=== PATIENT | female | born 1965 | race Asian ===

== ENCOUNTER 2016-11-07 09:16 | Inpatient (IN) | payer OTHER ==
[~2016-11-07] VITALS: Ht 162.6 cm; Wt 66.5 kg
[2016-11-07] VITALS (16 sets, daily range): BP systolic 113–159; BP diastolic 67–92; PULSE 102–128; RESP 16–24; Ht 162.6 cm; Wt 66.5 kg
[~2016-11-07 09:16] MED LIST: ASPI-664; CARV6.2579 PO; CEFAZOLIN 1 GM INJ ONE; CEFAZOLIN 2 GM/50 ML (PMX) 50 ML IVPB ONE; D5-NS + KCL 20 MEQ 1,000 ML IV SCH; GEMF600T; SITA1TAB7 PO; metroNIDAZOLE 500 MG/NS (PMX) 100 ML IVPB ONE
[2016-11-07] MEDS ORDERED: THROMBIN 5000 UNIT VIAL ONE ×2 (10:11→11:56)
[2016-11-07] MEDS ORDERED: VASOPRESSIN 20 UNITS INJ ONE (10:11)
[2016-11-07] MEDS ORDERED: METHYLENE BLUE 10 MG/ML VIAL ONE ×2 (10:11→14:03)
[2016-11-07] MEDS ORDERED: SUCCINYLCHOLINE CHLORIDE 100 MG/5 ML SYG IV ONE (11:25)
[2016-11-07] MEDS ORDERED: LIDOCAINE 2% (SDV) 5 ML INJ ONE (11:25)
[2016-11-07] MEDS ORDERED: NEOSTIGMINE 3 MG/3 ML SYRINGE ONE (11:25)
[2016-11-07] MEDS ORDERED: ROCURONIUM 50 MG INJ ONE ×2 (11:25→12:27)
[2016-11-07] MEDS ORDERED: GLYCOPYRROLATE 0.4 MG INJ ONE (11:25)
[2016-11-07] MEDS ORDERED: PROPOFOL 20 ML ONE (11:25)
[2016-11-07] MEDS ORDERED: ONDANSETRON 4 MG INJ ONE (11:28)
[2016-11-07] MEDS ORDERED: METOCLOPRAMIDE 10 MG INJ ONE (11:28)
[2016-11-07] MEDS ORDERED: morphine SULFATE/PF (10 MG/10 ML) INJ ONE ×2 (11:28→11:33)
[2016-11-07] MEDS ORDERED: HEMOSTATIC MATRIX SYG ZFS ONE (12:45)
[2016-11-07] MEDS ORDERED: FENTAnyl 50 MCG/ML VIAL IV PRN ×2 (14:30)
[2016-11-07] MEDS ORDERED: morphine (1 MG/ML) 10ML SYRINGE IV PRN ×2 (14:30)
[2016-11-07] MEDS ORDERED: METOCLOPRAMIDE 10 MG INJ IV PRN (14:30)
[2016-11-07] MEDS ORDERED: LABETALOL HCL 20MG INJ IV PRN (14:30)
[2016-11-07] MEDS ORDERED: EPHEDrine SULFATE 50 MG/5 ML SYG IV PRN ×2 (14:30)
[2016-11-07] MEDS ORDERED: hydrALAzine 20 MG INJ IV PRN (14:30)
[2016-11-07] MEDS ORDERED: MEPERIDINE 25 MG INJ IV PRN (14:30)
[2016-11-07] MEDS ORDERED: MIDAZOLAM 1 MG/ML 2 ML INJ IV PRN (14:30)
[2016-11-07] MEDS ORDERED: DIPHENHYDRAMINE 50 MG INJ IV PRN (14:30)
[2016-11-07] MEDS ORDERED: ONDANSETRON 4 MG INJ IV PRN (14:30)
[2016-11-07] MEDS ORDERED: morphine SULFATE/PF (10 MG/10 ML) INJ SPINAL ONE (14:30)
[2016-11-07] MEDS ORDERED: HYDROCODONE/APAP (5/325) TAB PO PRN (16:00)
[2016-11-07] MEDS ORDERED: morphine 2 MG INJ IV PRN (16:00)
[2016-11-07 16:21] LABS: ADD UMIC YES; URINE BILIRUBIN (Dip) NEGATIVE (NEGATIVE); URINE BLOOD (Dip) 3+ (NEGATIVE); URINE COLOR LT. YELLOW (YELLOW); URINE KETONES (Dip) NEGATIVE (NEGATIVE); URINE LEUKOCYTE ESTERASE (Dip) NEGATIVE (NEGATIVE); URINE NITRITE (Dip) NEGATIVE (NEGATIVE); URINE TOTAL PROTEIN (Dip) TRACE (NEGATIVE); URINE UROBILINOGEN (Dip) 0.2 E.U./dL (0.1-1.0)
[2016-11-07 16:42] LABS: URINE RBCS >50 /HPF (0)
[2016-11-07 16:43] LABS: BACTERIA,URINE RARE; SQUAMOUS EPITHELIAL CELL,UR RARE
[2016-11-07] MEDS ORDERED: D5-LR + KCL 20 MEQ 1,000 ML IV SCH (17:00)
[2016-11-07] MEDS: KETOROLAC 30 MG INJ IV SCH (19:02)
[2016-11-07] MEDS ORDERED: GLUCOSE GEL 15 GRAM TUBE BUCCAL PRN (20:30)
[2016-11-07] MEDS ORDERED: GLUCAGON 1 MG INJ IM PRN (20:30)
[2016-11-07] MEDS ORDERED: DEXTROSE 50% 50 ML SYRINGE IV PRN ×2 (20:30)
[2016-11-07] MEDS ORDERED: GLUCOSE GEL 15 GRAM TUBE PO PRN ×2 (20:30)
[2016-11-07] MEDS: GABAPENTIN 100 MG CAP PO SCH (21:09)
[2016-11-07] MEDS: INSULIN ASPART [NOVOLOG] 3 ML PEN SC SCH (21:14)
[2016-11-07] MEDS ORDERED: POTASSIUM CHLORIDE 20 MEQ in DEXTROSE 5%-LR 1,000 ML IV SCH (21:30)
[2016-11-07] MEDS: ONDANSETRON 4 MG INJ IV PRN (22:11)
[2016-11-08] VITALS: BP 105/57; PULSE 122; RESP 18
[2016-11-08] MEDS: KETOROLAC 30 MG INJ IV SCH ×5 (01:04→23:06)
[2016-11-08] MEDS: ACCUCHECK XX SCH (02:00)
[2016-11-08 05:29] LABS: BASOPHILS % 0.3 % (0.0-2.0); HEMATOCRIT 33.1 % (37.0-47.0); HEMOGLOBIN 11.2 g/dl (12.0-16.0); LYMPHOCYTES # 1.7 10^3/ul (0.8-2.9); LYMPHOCYTES % 19.3 % (15.0-51.0); MEAN CORPUSCULAR HEMOGLOBIN 28.7 pg (29.0-33.0); MEAN CORPUSCULAR HGB CONC 33.8 g/dl (32.0-37.0); MEAN CORPUSCULAR VOLUME 85.1 fl (82.0-101.0); MEAN PLATELET VOLUME 8.1 fl (7.4-10.4); MONOCYTE # 0.5 10^3/ul (0.3-0.9); NEUTROPHIL # 6.5 10^3/ul (1.6-7.5); NEUTROPHILS % 74.4 % (39.0-77.0); PLATELET COUNT 234 10^3/UL (140-440); RED BLOOD COUNT 3.89 10^6/ul (4.20-5.40); RED CELL DISTRIBUTION WIDTH 15.1 % (11.5-14.5); UNCORRECTED WBC 8.7 10^3/ul (4.8-10.8); WHITE BLOOD COUNT 8.7 10^3/ul (4.8-10.8)
[2016-11-08 05:37] VITALS: BP 104/58; PULSE 114; RESP 18
[2016-11-08 05:56] LABS: CONDITION 1; LH ANALYZER COMMENTS 1
[2016-11-08] MEDS ORDERED: POTASSIUM CHLORIDE 20 MEQ in DEXTROSE 5%-LR 1,000 ML IV SCH (06:00)
[2016-11-08] MEDS ORDERED: D5-LR + KCL 20 MEQ 1,000 ML IV SCH (06:00)
[2016-11-08 06:19] LABS: CALCIUM 8.3 mg/dl (8.4-10.2)
[2016-11-08 06:33] LABS: POTASSIUM 3.6 mmol/L (3.5-5.1)
[2016-11-08 06:36] LABS: CREATININE 0.61 mg/dl (0.44-1.00)
[2016-11-08] MEDS: ONDANSETRON 4 MG INJ IV PRN (08:20)
[2016-11-08] MEDS: GABAPENTIN 100 MG CAP PO SCH ×3 (08:21→20:39)
[2016-11-08] MEDS: ASPIRIN (EC) 81 MG TAB PO SCH (08:21)
[2016-11-08] MEDS: INSULIN ASPART [NOVOLOG] 3 ML PEN SC SCH ×4 (08:24→20:42)
[2016-11-08 08:38] VITALS: BP 91/50; PULSE 115; RESP 18
[2016-11-08] MEDS ORDERED: LISINOPRIL 10 MG TAB PO SCH (09:00)
[2016-11-08] MEDS ORDERED: [UNRECOGNIZED DRUG - OTHER] XX SCH (10:00)
[2016-11-08] MEDS ORDERED: [UNRECOGNIZED DRUG - REMARK] XX SCH (10:00)
[2016-11-08] MEDS ORDERED: DAPAGLIFLOZIN 10 MG XX SCH (10:00)
[2016-11-08] MEDS ORDERED: JANUMET XX SCH (10:00)
[2016-11-08 12:18] VITALS: BP 106/55; PULSE 107; RESP 17
[2016-11-08] MEDS: FARXIGA 10 MG PO SCH (13:19)
[2016-11-08] MEDS: Pravastatin 40 MG TAB PO SCH (13:19)
[2016-11-08] MEDS: OMEPRAZOLE 40MG PO SCH (15:07)
--- NOTE | 2016-11-08 16:19 | PN ---
Date/Time of Note Date/Time of Note DATE: 11/08/16 TIME: 16:16 Assessment/Plan VTE Prophylaxis VTE Prophylaxis Intervention: SCD's Lines/Catheters IV Catheter Type (from [facility]): Peripheral IV Urinary Cath still in place: Yes Assessment/Plan Chief Complaint/Hosp Course persistent PMB, pelvic cyst Problems: Assessment/Plan A- doing adequate but gradual P - anticipate discharge tomorrow. Encouraged to ambulate and discussed surgery. Subjective 24 Hr Interval Summary Free Text/Dictation S-Minimal flatus and minimally OOB. Tolerated diet marginally. O- resp- clear cvs- NSR abd soft NT ext NT no edema A- doing adequate but gradual P - anticipate discharge tomorrow. Encouraged to ambulate and discussed surgery. Exam/Review of Systems Vital Signs Vitals Vital Signs Date Time Temp Pulse Resp B/P Pulse Ox O2 Delivery O2 Flow Rate FiO2 11/08/16 12:18 98.0 107 17 106/55 96 Room Air 11/08/16 08:38 2.0 Intake and Output 11/07/16 11/07/16 11/08/16 15:00 23:00 07:00 Intake Total 2250 ml 1450 ml Output Total 1450 ml 550 ml Balance 800 ml 900 ml Results Result Diagram: 11/08/16 0440 11/08/16 0440 Results 24 hrs Laboratory Tests Test 11/07/16 20:23 11/08/16 02:09 11/08/16 04:40 11/08/16 07:43 Bedside Glucose 247 H 262 H 153 Anion Gap 16 Basophils # 0.0 Basophils % 0.3 Blood Morphology Comment Blood Urea Nitrogen 11 Calcium Level 8.3 L Carbon Dioxide Level 26 Chloride Level 105 Creatinine 0.61 Eosinophils # 0.0 Eosinophils % 0.0 Glucose Level 215 Hematocrit 33.1 L Hemoglobin 11.2 L Lymphocytes # 1.7 Lymphocytes % 19.3 Mean Corpuscular Hemoglobin 28.7 L Mean Corpuscular Hemoglobin Concent 33.8 Mean Corpuscular Volume 85.1 Mean Platelet Volume 8.1 Monocytes # 0.5 Monocytes % 6.0 Neutrophils # 6.5 Neutrophils % 74.4 Nucleated Red Blood Cells # 0.0 Nucleated Red Blood Cells % 0.0 Platelet Count 234 Potassium Level 3.6 Red Blood Count 3.89 L Red Cell Distribution Width 15.1 H Sodium Level 143 White Blood Count 8.7 Test 11/08/16 11:29 Bedside Glucose 189 Medications Medications Current Medications Ondansetron HCl (Zofran Inj) 4 mg Q6H PRN IV NAUSEA AND/OR VOMITING Last administered on 11/08/16at 08:20; Admin Dose 4 MG; Start 11/07/16 at 16:00 Ketorolac Tromethamine (Toradol) 30 mg Q6 IV Last administered on 11/08/16at 12 :14; Admin Dose 30 MG; Start 11/07/16 at 18:00; Stop 11/09/16 at 00:01 Acetaminophen/ Hydrocodone Bitart ([place] (5/325)) 1 tab Q6H PRN PO PAIN; Start 11/07/16 at 16:00 Gabapentin (Neurontin) 100 mg TID PO Last administered on 11/08/16at 13:21; Admin Dose 100 MG; Start 11/07/16 at 21:00 Aspirin (Halfprin) 81 mg DAILY PO Last administered on 11/08/16at 08:21; Admin Dose 81 MG; Start 11/08/16 at 09:00 Patient Own Medication 1 ea DAILY PO Last administered on 11/08/16at 13:19; Admin Dose 1 EA; Start 11/08/16 at 13:00 Patient Own Medication 1 ea DAILY PO Last administered on 11/08/16at 15:07; Admin Dose 1 EA; Start 11/08/16 at 14:30 Patient Own Medication 1 ea DAILY PO Last administered on 11/08/16at 13:19; Admin Dose 1 EA; Start 11/08/16 at 13:00 Diagnostic Test (Pha) (Accucheck) 1 ea 02 XX ; Start 11/08/16 at 02:00 Miscellaneous Information 1 ea NOTE XX ; Start 11/07/16 at 20:30 Glucose (Glutose) 15 gm Q15M PRN PO DECREASED GLUCOSE; Start 11/07/16 at 20:30 Glucose (Glutose) 22.5 gm Q15M PRN PO DECREASED GLUCOSE; Start 11/07/16 at 20: 30 Dextrose (D50w Syringe) 25 ml Q15M PRN IV DECREASED GLUCOSE; Start 11/07/16 at 20:30 Dextrose (D50w Syringe) 50 ml Q15M PRN IV DECREASED GLUCOSE; Start 11/07/16 at 20:30 Glucagon (Glucagen) 1 mg Q15M PRN IM DECREASED GLUCOSE; Start 11/07/16 at 20: 30 Glucose 15 gm 15 gm Q15M PRN BUCCAL DECREASED GLUCOSE; Start 11/07/16 at 20:30 Sodium Chloride (NS) 1,000 ml @ 40 mls/hr Q24H IV ; Start 11/08/16 at 16:30; Status UNV Carvedilol (Coreg) 6.25 mg BID PO ; Start 11/08/16 at 21:00; Status UNV Lisinopril (Zestril) 5 mg DAILY PO ; Start 11/09/16 at 09:00; Status UNV TREMAYNE LOCO MD Nov 08, 2016 16:19
[2016-11-08] MEDS ORDERED: SOD CHLORIDE 0.9% 1,000 ML IV SCH (16:30)
--- NOTE | 2016-11-08 17:40 | CONS ---
DATE OF ADMISSION: 11/07/2016 DATE OF CONSULTATION: 11/08/2016 REQUESTING PHYSICIAN: Tremayne Victoria MD CONSULTING PHYSICIAN: Homeor Guzman MD, internal medicine. REASON FOR CONSULTATION: Medical management. HISTORY OF PRESENT ILLNESS: This is a 51-year-old, [place]ese female with past medical history of essential hypertension, type 2 diabetes, gastritis, H. pylori infection, dyslipidemia, and duodenal order ulcers, who was electively brought to [facility] for a laparoscopic total vaginal hysterectomy, secondary to the diagnosis of persistent postmenopausal bleeding and adnexal cyst, cervical stenosis as well as persistent pelvic pain. The patient underwent a total laparoscopic hysterectomy bilateral salpingo- oophorectomy, bilateral ureteral dissection with repositioning, and lysis of adhesions on 11/07/2016mwith no immediate surgical complications. The patient was admitted to inpatient setting for postoperative care. PAST MEDICAL HISTORY: Essential hypertension, type 2 diabetes melitis, duodenal ulcer, gastritis, H pylori infection, dyslipidemia. PAST SURGICAL HISTORY: , total laparoscopic hysterectomy (current). HOME MEDICATIONS 1. Coreg 6.25 mg p.o. b.i.d. 2. Gemfibrozil 600 mg p.o. at bedtime. 3. Aspirin 81 mg p.o. daily. 4. Janumet mg p.o. with breakfast and dinner. 5. Omeprazole 40 mg p.o. daily. 6. Farxiga 10 mg p.o. daily. 7. Atorvastatin 40 mg p.o. at bedtime. ALLERGIES: NO KNOWN DRUG ALLERGIES. SOCIAL HISTORY: The patient was born and brought up in [facility]. Immigrated to the [place] in 2003. The patient currently lives with her family. She has 4 kids. Denies any use of tobacco, alcohol or illicit drugs. FAMILY HISTORY: Positive for diabetes, and CAD. Positive for breast cancer. REVIEW OF SYSTEMS CONSTITUTIONAL: Denies any fevers or chills. HEENT: Denies any headache, dry eyes, blurred vision, otorrhea, otalgia, rhinorrhea. RESPIRATORY: Denies any dyspnea, cough or sputum production. CARDIOVASCULAR: Denies any chest pain. Complains of a rapid heart rate. Denies any orthopnea or paroxysmal nocturnal dyspnea. GASTROINTESTINAL: Denies any nausea. Complains of anorexia, passing gas. GENITOURINARY: Denies any dysuria or hematuria. MUSCULOSKELETAL: Denies any joint pain. NEUROLOGIC: Denies any dizziness, drowsiness. PHYSICAL EXAMINATION VITAL SIGNS: Temperature 98.0, pulse rate 107, respiratory rate 17, blood pressure 106/54, oxygen saturation 96% on room air. GENERAL: This is a slightly a well-built, [place] female lying in bed, in no apparent distress. HEENT: Head normocephalic and atraumatic. Eyes, anicteric sclerae. Conjunctivae clear. ENT, nasal septum is midline. Oral mucosa is moist. NECK: Supple. No JVD noticed. RESPIRATORY: Bilaterally diminished breath sounds. No adventitious breath sounds. No use of accessory muscles of respiration. CARDIAC: Regular rate and rhythm. There is sinus tachycardia. No obvious murmurs heard. ABDOMEN: Slightly distended. Laparoscopic incision sites with dressings over it. Mild nathalia-incisional tenderness. Bowel sounds hypoactive in all 4 quadrants. GENITOURINARY: Deferred. EXTREMITIES: No cyanosis, no clubbing, no edema. Peripheral pulses palpable. NEUROLOGIC: Awake, alert and oriented. Cranial nerves are grossly intact. LABORATORY AND DIAGNOSTIC DATA: WBC 8.7, hemoglobin 11.2, hematocrit 33.1, platelet count 234. Sodium 143, potassium 3.6, chloride 105, carbon dioxide 26 , anion gap 16, BUN 11, creatinine 0.60, glucose 215, calcium 8.3. Urine culture: No growth after 24 hours. ASSESSMENT AND PLAN 1. Persistent postmenopausal bleeding and adnexal cyst, cervical stenosis, bilateral ureteral stricture, and moderate pelvic adhesions. S/P total laparoscopic hysterectomy bilateral salpingo-oophorectomy, bilateral ureteral dissection with repositioning, and lysis of adhesions on 11/07/2016. Continue postoperative care, as per the surgeon. The patient currently on full-liquid diet. Advancement of diet, as per the surgeon. Continue frequent ambulation and frequent use of incentive spirometry. 2. Type 2 diabetes mellitus. Continue sliding scale insulin. The patient on oral biguanides and dipeptidyl peptidase-4 inhibitors, in addition to sodium- glucose co-transporter 2 (SGLT2) inhibitors. Blood sugars running high. The patient's IV fluid containing dextrose will be discontinued. A hemoglobin A1c will be obtained to evaluate the blood glucose control over the past few weeks. 3. Essential hypertension. Continue antihypertensives. The patient's blood pressure is slightly on the lower side. Hold antihypertensives if the BP remains low. 4. Sinus tachycardia. As per the patient, she follows up with Dr. Esdras Singleton, her collector of aquarium specimens. The patient's collector of aquarium specimens has instructed her to continue taking beta blockers. The patient's beta danielle dosing will be decreased because of recurrent hypotension. The patient's heart rate is regular and the patient's 12-lead EKG shows sinus rhythm. 5. Dyslipidemia. The patient will be continued on statins. A fasting lipid panel will be obtained. 6. History of gastritis and duodenal ulcers. The patient will be maintained on proton pump inhibitors. Additional diagnostic and therapeutic orders will be added as clinically indicated. The case and management of this patient were fully discussed with Dr. Guzman. Thank you, Dr. Victoria for allowing us to participate in this patient's care. We will continue to follow the patient along with you. Approximately 45 minutes were spent on the medical consult on this patient. JULIAN GUZMAN MD AM/NTS Conf#: [id number] DID#: [id number] CC: TREMAYNE VICTORIA MD;*EndCC* MTDD
[2016-11-08 21:10] VITALS: BP 111/62; PULSE 109; RESP 18
--- NOTE | 2016-11-08 23:17 | OPR ---
Date/Time of Note Date/Time of Note DATE: 11/08/16 TIME: 23:16 Operative Report Free Text/Dictation 3 OPERATIVE REPORT [facility] Name: Rei Robledo Date: 11/07/16 Preoperative Diagnosis: 1- Persistent postmenopausal bleeding and adnexal cyst 2- Cervical stenosis 3- Pelvic pain Postoperative Diagnosis: 1. Same with pathology pending 2. Bilateral ureteral stricture 3. Moderate pelvic adhesions Procedures: 1. Total laparoscopic hysterectomy bilateral salpingoophorectomy 2. Bilateral ureteral dissection with repositioning 3. Lysis of adhesions Surgeon: Dr. Victoria Release Of Information Specialist: Dr. Behzad Temple Anesthesia: General Indication for procedure: The patient was a 51- year old female with persistent postmenopausal bleeding and cervical stenosis precluding biopsy after considering all options with risks and benefits a total laparoscopic hysterectomy with bilateral salpingoophorectomy was selected and a possible frozen section with possible retroperitoneal node dissection pending frozen section results. Findings and Summary After exploration we observed considerable pelvic adhesions including anterior Name: Rei Gonzalezhuarron Robledo dense adhesions and adnexal bilaterally adherent to the sidewalls with an adjacent cyst both distorting retroperitoneal anatomy and it was necessary to dissect and reposition the ureters bilaterally to confirm anatomic location of the ureters and preclude laparotomy. The adnexia with uterus were then removed without incident. Procedure: After being prepped and draped in the usual manner an EEA sizer and pneumo- occluder was inserted vaginally after which a 5 millimeter trocar was placed immediately cephlad to the umbilicus without incident. Subsequently, considerable anterior abdominal omental adhesions with the Thunderbeat after we insufflated to 15 mm Hg and under direct observation with a 0-degree scope placed two 5 millimeter trocars laterally, allowing a dense cord of anterior adhesion between the uterus and the anterior abdomen to be lysed with the Thunderbeat and then a 12 millimeter trocar was inserted suprapubically. At this time pelvic adhesions were lysed with sharp dissection and the Thunderbeat and Omni if not adjacent to bowel. The pelvis was subsequently inspected and we noted some uterine enlargement with the adnexia densely adherent to the sidewalls and adjacent cyst like structures on the left adjacent to the sigmoid colon that were addressed with sharp dissection due to adhesions. We proceeded with the procedure due to pain and abnormal bleeding. Initially the right round ligament was cauterized and transected with the Thunderbeat and the retroperitoneal space further opened parallel to the IP ligament an laterally with the same devise. The right ureter was identified and due to the aforementioned distortion from adherent adnexia was dissected laterally with the Omni and the endo-dissector. After lateralizing the ureter the uterine artery was identified and clipped adjacent to the hypogastric artery due to the uterine enlargement and hypervascularity lateral to the ureter. Hence, a space was developed the broad ligament and the right IP ligament was cauterized and transected with a Name: [facility] Thunderbeat after which the uterus was retracted medially and the bladder flap was partly developed with the the Omni. We then used a 10-mm ratcheted endo- grasper placed through the 12-mm suprapubic trocar to manipulate the uterus with the EEA sizer which was placed in the vagina and the uterus was retracted and left round ligament was cauterized and transected with the Thunderbeat and the retroperitoneal space further opened parallel to the IP ligament an laterally with the same devise. The left ureter was identified and due to the aforementioned distortion was dissected laterally with the Omni and the endo- dissector as done contralaterally. After lateralizing the ureter the uterine artery was identified and clipped adjacent to the hypogastric artery due to the uterine enlargement and hypervascularity lateral to the ureter. Hence, a space was developed in the broad ligament and the left IP ligament was cauterized and transected with a Thunderbeat after which the uterus was retracted medially, allowing development or the bladder flap uneventfully with a Thunderbeat. Subsequently, the right uterine artery was transected with a Thunderbeat and Omni perpendicular to the distal lower uterine segment and the Cardinal ligament and utero-sacral ligament were both transected with an Omni and Thunderbeat parallel to the lower uterine segment and cervix. An identical series of steps were taken on the left side. The anterior and posterior colpotomies were accomplished with a Thunderbeat and Omni anteriorly and posteriorly, and continued around the sides as the specimen was removed through the vagina uneventfully. The vagina was closed with interrupted 2-0 Vicryl suture and continuous 2-0 v-lock suture. After irrigating and assuring hemostasis the 12 millimeter trocar was removed and the fascia was closed with 0 -vicryl using an endo-close devise. The gas was removed and the skin of all sites then closed with 4-0 Plain Gut . The EBL was 100cc and the patient tolerated the procedure well and left the OR in good condition. Tremayne Victoria M.D. TREMAYNE VICTORIA MD Nov 08, 2016 23:17
[2016-11-09] MEDS: ACCUCHECK XX SCH (02:00)
[2016-11-09 05:17] LABS: BASOPHILS % 0.5 % (0.0-2.0); EOSINOPHILS # 0.2 10^3/ul (0.0-0.5); EOSINOPHILS % 2.2 % (0.0-7.0); HEMATOCRIT 31.4 % (37.0-47.0); HEMOGLOBIN 10.8 g/dl (12.0-16.0); LYMPHOCYTES # 2.4 10^3/ul (0.8-2.9); LYMPHOCYTES % 34.3 % (15.0-51.0); MEAN CORPUSCULAR HEMOGLOBIN 29.4 pg (29.0-33.0); MEAN CORPUSCULAR HGB CONC 34.6 g/dl (32.0-37.0); MEAN CORPUSCULAR VOLUME 85.2 fl (82.0-101.0); MEAN PLATELET VOLUME 7.9 fl (7.4-10.4); MONOCYTE # 0.3 10^3/ul (0.3-0.9); MONOCYTES % 4.4 % (0.0-11.0); NEUTROPHIL # 4.2 10^3/ul (1.6-7.5); NEUTROPHILS % 58.6 % (39.0-77.0); PLATELET COUNT 197 10^3/UL (140-440); RED BLOOD COUNT 3.68 10^6/ul (4.20-5.40); RED CELL DISTRIBUTION WIDTH 15.1 % (11.5-14.5); UNCORRECTED WBC 7.1 10^3/ul (4.8-10.8); WHITE BLOOD COUNT 7.1 10^3/ul (4.8-10.8)
[2016-11-09 05:38] LABS: ALBUMIN 3.3 g/dl (3.3-4.9); POTASSIUM 3.4 mmol/L (3.5-5.1)
[2016-11-09 05:39] LABS: CHOL/HDL RATIO 3.9 RATIO; MAGNESIUM 1.9 mg/dl (1.7-2.5); PHOSPHORUS 3.4 mg/dl (2.5-4.9)
[2016-11-09 05:40] LABS: BILIRUBIN,INDIRECT 0.3 mg/dl (0-1.1); BILIRUBIN,TOTAL 0.3 mg/dl (0.2-1.3); CREATININE 0.79 mg/dl (0.44-1.00)
[2016-11-09 05:41] LABS: ALBUMIN/GLOBULIN RATIO 1.22
[2016-11-09 05:42] LABS: CALCIUM 8.8 mg/dl (8.4-10.2)
[2016-11-09 06:04] LABS: THYROID STIMULATING HORMONE 1.02 MIU/L (0.465-4.680)
[2016-11-09 06:39] LABS: CONDITION 1; LH ANALYZER COMMENTS 1
[2016-11-09] MEDS ORDERED: POTASSIUM CHLORIDE (SR) 20 MEQ TAB PO STA (07:25)
[2016-11-09 08:00] VITALS: BP 123/70; RESP 20
[2016-11-09] MEDS: GABAPENTIN 100 MG CAP PO SCH ×2 (08:58→12:57)
[2016-11-09] MEDS: ASPIRIN (EC) 81 MG TAB PO SCH (08:58)
[2016-11-09] MEDS ORDERED: LISINOPRIL 5 MG TAB PO SCH (09:00)
--- NOTE | 2016-11-09 09:00 | PN ---
Date/Time of Note Date/Time of Note DATE: 11/09/16 TIME: 08:59 Assessment/Plan VTE Prophylaxis VTE Prophylaxis Intervention: SCD's Lines/Catheters IV C[facility] Type [facility]from [facility] Peripheral IV Urinary Cath still in place: No Assessment/Plan Chief Complaint/Hosp Course 1. Persistent postmenopausal bleeding and adnexal cyst, cervical stenosis, bilateral ureteral stricture, and moderate pelvic adhesions. S/P total laparoscopic hysterectomy bilateral salpingo-oophorectomy, bilateral ureteral dissection with repositioning, and lysis of adhesions on 11/07/2016. Continue postoperative care, as per the surgeon. Continue frequent ambulation and frequent use of incentive spirometry. 2. Type 2 diabetes mellitus. Continue sliding scale insulin. The patient on oral biguanides and dipeptidyl peptidase-4 inhibitors, in addition to sodium- glucose co-transporter 2 (SGLT2) inhibitors. Hemoglobin A1c 8.5. 3. Essential hypertension. Continue antihypertensives. 4. Sinus tachycardia. As per the patient, she follows up with Dr. Esdras Singleton, her weather forcaster. The patient's weather forcaster as instructed her to continue taking beta blockers. 5. Dyslipidemia. The patient will be continued on statins. Fasting lipid panel suboptimal. 6. History of gastritis and duodenal ulcers. The patient will be maintained on proton pump inhibitors. 7. Hypokalemia. Replete. 8. Fluids, electrolytes, and nutrition. Diet as per surgery. 9. DVT prophylaxis. Bilateral sequential compression devices. 10. Gastrointestinal prophylaxis. Proton pump inhibitors. 11. Plan. Continue current medical management. Replete potassium. Medically stable to be discharged once cleared by surgery. Thank you for the consult. Case discussed with Dr. Shukla. Problems: Subjective 24 Hr Interval Summary Free Text/Dictation Pain well controlled. Tolerating diet well. No nausea or vomiting. Exam/Review of Systems Vital Signs Vitals Vital Signs Date Time Temp Pulse Resp B/P Pulse Ox O2 Delivery O2 Flow Rate FiO2 11/09/16 08:00 97.1 104 20 123/70 99 11/08/16 21:10 Room Air 11/08/16 08:38 2.0 Intake and Output 11/08/16 11/08/16 11/09/16 15:00 23:00 07:00 Intake Total 200 ml 1380 ml Output Total 350 ml 1300 ml Balance -350 ml 200 ml 80 ml Exam GENERAL: This is a slightly a well-built, [place] female lying in bed, in no apparent distress. HEENT: Head normocephalic and atraumatic. Eyes, anicteric sclerae. Conjunctivae clear. ENT, nasal septum is midline. Oral mucosa is moist. NECK: Supple. No JVD noticed. RESPIRATORY: Bilaterally diminished breath sounds. No adventitious breath sounds. No use of accessory muscles of respiration. CARDIAC: Regular rate and rhythm. There is sinus tachycardia. No obvious murmurs heard. ABDOMEN: Slightly distended. Laparoscopic incision site with the dressings over it. Mild nathalia-incisional tenderness. Bowel sounds hypoactive in all 4 quadrants. GENITOURINARY: Deferred. EXTREMITIES: No cyanosis, no clubbing, no edema. Peripheral pulses palpable. NEUROLOGIC: Awake, alert and oriented. Cranial nerves are grossly intact. Results Result Diagram: 11/09/16 0438 11/09/16 0438 Results 24 hrs Laboratory Tests Test 11/08/16 11:29 11/08/16 16:51 11/08/16 20:05 11/09/16 02:32 Bedside Glucose 189 206 186 170 Test 11/09/16 04:38 11/09/16 08:12 Alanine Aminotransferase (ALT/SGPT) 29 Albumin 3.3 Albumin/Globulin Ratio 1.22 Alkaline Phosphatase 61 Anion Gap 14 Aspartate Amino Transf (AST/SGOT) 20 Basophils # 0.0 Basophils % 0.5 Blood Morphology Comment Blood Urea Nitrogen 12 Calcium Level 8.8 Carbon Dioxide Level 24 Chloride Level 106 Cholesterol Level 163 Cholesterol/HDL Ratio 3.9 Creatinine 0.79 Direct Bilirubin 0.00 Eosinophils # 0.2 Eosinophils % 2.2 Free Thyroxine 2.22 H Globulin 2.70 Glucose Level 201 HDL Cholesterol 41 Hematocrit 31.4 L Hemoglobin 10.8 L Hemoglobin A1c 8.5 H Indirect Bilirubin 0.3 LDL Cholesterol, Calculated 68 Lymphocytes # 2.4 Lymphocytes % 34.3 Magnesium Level 1.9 Mean Corpuscular Hemoglobin 29.4 Mean Corpuscular Hemoglobin Concent 34.6 Mean Corpuscular Volume 85.2 Mean Platelet Volume 7.9 Monocytes # 0.3 Monocytes % 4.4 Neutrophils # 4.2 Neutrophils % 58.6 Nucleated Red Blood Cells # 0.0 Nucleated Red Blood Cells % 0.0 Phosphorus Level 3.4 Platelet Count 197 Potassium Level 3.4 L Red Blood Count 3.68 L Red Cell Distribution Width 15.1 H Sodium Level 141 Thyroid Stimulating Hormone (TSH) 1.020 Total Bilirubin 0.3 Total Protein 6.0 L Triglycerides Level 268 H White Blood Count 7.1 Bedside Glucose 152 Medications Medications Current Medications Ondansetron HCl (Zofran Inj) 4 mg Q6H PRN IV NAUSEA AND/OR VOMITING Last administered on 11/08/16at 08:20; Admin Dose 4 MG; Start 11/07/16 at 16:00 Acetaminophen/ Hydrocodone Bitart ([place] (5/325)) 1 tab Q6H PRN PO PAIN; Start 11/07/16 at 16:00 Gabapentin (Neurontin) 100 mg TID PO Last administered on 11/08/16at 20:39; Admin Dose 100 MG; Start 11/07/16 at 21:00 Aspirin (Halfprin) 81 mg DAILY PO Last administered on 11/08/16at 08:21; Admin Dose 81 MG; Start 11/08/16 at 09:00 Patient Own Medication 1 ea DAILY PO Last administered on 11/08/16at 13:19; Admin Dose 1 EA; Start 11/08/16 at 13:00 Patient Own Medication 1 ea DAILY PO Last administered on 11/08/16at 15:07; Admin Dose 1 EA; Start 11/08/16 at 14:30 Patient Own Medication 1 ea DAILY PO Last administered on 11/08/16at 13:19; Admin Dose 1 EA; Start 11/08/16 at 13:00 Diagnostic Test (Pha) (Accucheck) 1 ea 02 XX ; Start 11/08/16 at 02:00 Miscellaneous Information 1 ea NOTE XX ; Start 11/07/16 at 20:30 Glucose (Glutose) 15 gm Q15M PRN PO DECREASED GLUCOSE; Start 11/07/16 at 20:30 Glucose (Glutose) 22.5 gm Q15M PRN PO DECREASED GLUCOSE; Start 11/07/16 at 20: 30 Dextrose (D50w Syringe) 25 ml Q15M PRN IV DECREASED GLUCOSE; Start 11/07/16 at 20:30 Dextrose (D50w Syringe) 50 ml Q15M PRN IV DECREASED GLUCOSE; Start 11/07/16 at 20:30 Glucagon (Glucagen) 1 mg Q15M PRN IM DECREASED GLUCOSE; Start 11/07/16 at 20: 30 Glucose 15 gm 15 gm Q15M PRN BUCCAL DECREASED GLUCOSE; Start 11/07/16 at 20:30 Sodium Chloride (NS) 1,000 ml @ 40 mls/hr Q24H IV Last administered on at 16:36; Admin Dose 40 MLS/HR; Start 11/08/16 at 16:30 Carvedilol (Coreg) 6.25 mg BID PO Last administered on 11/08/16at 20:43; Admin Dose 6.25 MG; Start 11/08/16 at 21:00 Lisinopril (Zestril) 5 mg DAILY PO ; Start 11/09/16 at 09:00 JULIAN PACHECO NP Nov 09, 2016 08:59
[2016-11-09] MEDS: Pravastatin 40 MG TAB PO SCH (09:04)
[2016-11-09] MEDS: OMEPRAZOLE 40MG PO SCH (09:04)
[2016-11-09] MEDS: FARXIGA 10 MG PO SCH (09:05)
[2016-11-09] MEDS: INSULIN ASPART [NOVOLOG] 3 ML PEN SC SCH ×2 (09:13→13:01)
== END 2016-11-09 16:55 | disposition home or self-care (01) | DRG 743 ==
LOC: REC 09:16 → MS1 17:00
PROC: 0UTC0ZZ Resection of Cervix, Open Approach (ICD-10-PCS; 2016-11-07)
PROC: 0UT20ZZ Resection of Bilateral Ovaries, Open Approach (ICD-10-PCS; 2016-11-07)
PROC: 0UT70ZZ Resection of Bilateral Fallopian Tubes, Open Approach (ICD-10-PCS; 2016-11-07)
PROC: 0UN90ZZ Release Uterus, Open Approach (ICD-10-PCS; 2016-11-07)
PROC: 0UT90ZZ Resection of Uterus, Open Approach (ICD-10-PCS; principal; 2016-11-07 11:00)
DX: D25.1 Intramural leiomyoma of uterus (principal); E11.21 Type 2 diabetes mellitus with diabetic nephropathy; N95.0 Postmenopausal bleeding; N88.2 Stricture and stenosis of cervix uteri; N72 Inflammatory disease of cervix uteri; N73.6 Female pelvic peritoneal adhesions (postinfective); E78.5 Hyperlipidemia, unspecified; E11.65 Type 2 diabetes mellitus with hyperglycemia; K29.70 Gastritis, unspecified, without bleeding; E87.6 Hypokalemia; D28.2 Benign neoplasm of uterine tubes and ligaments; E11.22 Type 2 diabetes mellitus with diabetic chronic kidney disease; I12.9 Hypertensive chronic kidney disease with stage 1 through stage 4 chronic kidney disease, or unspecified chronic kidney disease; N18.1 Chronic kidney disease, stage 1; Z79.4 Long term (current) use of insulin; Z87.11 Personal history of peptic ulcer disease; Z79.82 Long term (current) use of aspirin
CPT/HCPCS: 80048; 80053; 80061; 81001; 81003; 82962; 83036; 83735; 84100; 84439; 84443; 85025; 86850; 86900; 86901; 86920; 87086; 88304; 88307; J0330; J0690; J1815; J1885; J2274; J2405; J2710; J2765; J3480; J7030; J7121